=== PATIENT | female | born 1945 | race Caucasian/White ===

== ENCOUNTER 2017-09-30 13:02 | Emergency (ER) | payer OTHER ==
[~2017-09-30] VITALS: Ht 170.2 cm; Wt 85.0 kg
[~2017-09-30 13:02] MED LIST: CYM30 PO; LRT5 PO; SYN125 PO; TRAM-10 PO; TRAZ100T29 PO
[2017-09-30 13:06] VITALS: TEMP 36.8; Ht 170.2 cm; Wt 85.0 kg
[2017-09-30] MEDS ORDERED: MoRPHine SULFATE 10 MG/ML CARP/VIAL IM STA (13:44)
--- NOTE | 2017-09-30 14:27 | DIAGNOSTIC IMAGING REPORT ---
R SHOULDER MIN 2 VIEWS ROUTINE HISTORY: 71 years-old Female fall, rt shoulder pain acute post traumatic right shoulder pain COMPARISON: Chest radiograph 08/15/2008 TECHNIQUE: 3 views of the right shoulder FINDINGS: Bones are mildly demineralized. Mild glenohumeral and AC joint osteoarthritis. There is an acute comminuted fracture of the proximal right humerus involving the proximal metadiaphysis, and surgical neck with extension into the caudal aspect greater tuberosity. The lesser tuberosity and humeral head appear intact. Comminuted fracture fragments are displaced laterally up to 1.3 cm. Minimal apex medial angulation of a few degrees. Imaged lung adams appear clear. Mild soft tissue swelling about the shoulder. IMPRESSION: Acute comminuted mildly displaced fracture of the proximal humerus involving the proximal metadiaphysis, surgical neck and greater tuberosity. The above report was generated using voice recognition software. It may contain grammatical, syntax or spelling errors. Electronically signed by: Jesús Beasley M.D. 09/30/2017 2:25 PM Dictated Date/Time: 09/30/2017 2:23 PM
[2017-09-30] MEDS ORDERED: OXYC-594 PO (14:54)
--- NOTE | 2017-09-30 14:55 | EMERGENCY ROOM VISIT NOTE ---
History Report prepared by Jodi: Areli Nagy Under the Supervision of: Dr. Narayan Mcginnis D.O. 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 The patient was walking outside when she stepped on a slippery board and fell. She landed on her right shoulder. She currently rates her discomfort as a 10/10 in severity. She denies any other injury. She is not having any pain elsewhere. Source of History: patient Onset: DOCK MANAGER Position: shoulder (right) Symptom Intensity: 10/10 Quality: other (injury from fall) Timing: other (persistent) Review of Systems See HPI for pertinent positives & negatives. A total of 10 systems reviewed and were otherwise negative. Past Medical & Surgical Medical Problems: (1) Osteoarthritis (2) Osteoporosis Family History Heart disease Social History Smoking Status: Never Smoker Marital Status: Housing Status: lives with significant other Occupation Status: employed Current/Historical Medications Scheduled Duloxetine Hcl (Cymbalta *), 30 MG PO DAILY Hydrocodone/Acetaminophen 5MG/500MG (Vicodin 5MG/500MG), 1-2 TABLET PO Q4-6HR PRN Levothyroxine (Synthroid *), 0.125 MG PO DAILY Tramadol (Ultram), 100 MG PO TID PRN Trazodone Hcl (Trazodone), 100 MG PO HS Scheduled PRN Oxycodone/Acetaminophen 10MG/325MG (Percocet 10MG/325MG), 1 TAB PO Q4H PRN for Pain Allergies Coded Allergies: No Known Allergies (Unverified , ., 10/15/08) Physical Exam Vital Signs Date Time Temp Pulse Resp B/P (MAP) Pulse Ox O2 Delivery O2 Flow Rate FiO2 09/30/17 13:06 36.8 57 18 152/83 100 Room Air Physical Exam CONSTITUTIONAL/VITAL SIGNS: Reviewed / noted above. GENERAL: Non-toxic in appearance. INTEGUMENTARY: Warm, dry, and [place]. HEAD: Normocephalic. EYES: without scleral icterus or trauma. ENT/OROPHARYNX: clear and moist. LYMPHADENOPATHY/NECK: Is supple without lymphadenopathy or meningismus. RESPIRATORY: Lungs clear and equal. CARDIOVASCULAR: Regular rate and rhythm. GI/ABDOMEN: Soft and nontender. No organomegaly or pulsatile mass. No rebound or guarding. Normal bowel sounds. EXTREMITIES: Warm and well perfused. BACK: No CVA tenderness. NEUROLOGICAL: Intact without focal deficits. PSYCHIATRIC: normal affect. MUSCULOSKELETAL: Normally developed with good muscle tone. Pain with palpation of the right shoulder. Medical Decision & Procedures ER Provider Diagnostic Interpretation: X ray results and stated below per my interpretation and radiology interpretation. R SHOULDER MIN 2 VIEWS ROUTINE HISTORY: 71 years-old Female fall, rt shoulder pain acute post traumatic right shoulder pain COMPARISON: Chest radiograph 08/15/2008 TECHNIQUE: 3 views of the right shoulder FINDINGS: Bones are mildly demineralized. Mild glenohumeral and AC joint osteoarthritis. There is an acute comminuted fracture of the proximal right humerus involving the proximal metadiaphysis, and surgical neck with extension into the caudal aspect greater tuberosity. The lesser tuberosity and humeral head appear intact. Comminuted fracture fragments are displaced laterally up to 1.3 cm. Minimal apex medial angulation of a few degrees. Imaged lung adams appear clear. Mild soft tissue swelling about the shoulder. IMPRESSION: Acute comminuted mildly displaced fracture of the proximal humerus involving the proximal metadiaphysis, surgical neck and greater tuberosity. The above report was generated using voice recognition software. It may contain grammatical, syntax or spelling errors. Electronically signed by: Jesús Beasley M.D. 09/30/2017 2:25 PM Dictated Date/Time: 09/30/2017 2:23 PM Medications Administered Medications (Trade) Dose Ordered Sig/Marylou Route Start Time Stop Time Status Last Admin Dose Admin Morphine Sulfate (MoRPHine SULFATE INJ) 8 mg NOW STAT IM 09/30/17 13:44 09/30/17 13:45 DC 09/30/17 14:02 8 MG ED Course 1341: Previous medical records were reviewed. The patient was evaluated in room A9A. A complete history and physical examination was performed. 1344: Morphine Sulfate 8 mg IM. 1434: I reevaluated the patient. I updated her on the results. 1452: On reevaluation, the patient is resting comfortably. I discussed the results and findings with the patient. She verbalized agreement of the treatment plan. She was discharged home. Medical Decision Differential diagnosis: Etiologies such as fracture, dislocation, neurovascular compromise, compartment syndrome, soft tissue injury, as well as others were entertained. This is a 71-year-old female who presents to the ED after slipping on a piece of what would and falling onto her right shoulder. She complains of right shoulder pain. X-ray reveals a comminuted mildly displaced proximal humerus fracture. Exam is consistent with this. She denies other injuries and did not strike her head or lose consciousness. She denies any neck or back pain. Blood pressure was slightly elevated likely related to pain. She was given morphine IM here for pain. She was placed in a splint and sling and referred to orthopedics. She has seen Dr. Torrez in the past. She is neurovascularly intact distally. Medication Reconcilliation Current Medication List: was personally reviewed by me Blood Pressure Screening Patient's blood pressure: Elevated blood pressure Blood pressure disposition: Elevated BP felt to be situational Impression Primary Impression: Proximal humerus fracture Scribe Attestation The scribe's documentation has been prepared under my direction and personally reviewed by me in its entirety. I confirm that the note above accurately reflects all work, treatment, procedures, and medical decision making performed by me. Departure Information Dispostion Home / Self-Care Prescriptions Oxycodone/Acetaminophen 10MG/325MG (PERCOCET 10MG/325MG) Tab 1 TAB PO Q4H Y for Pain, #30 TAB Prov: Narayan Mcginnis D.O. 09/30/17 Patient Instructions My [facility] Additional Instructions Keep splint clean and dry. Follow-up with orthopedics tomorrow for recheck. Percocet as prescribed. No driving within 6 hours of use. Do not take additional Tylenol while taking Percocet.
[2017-09-30 15:02] VITALS: BP 125/64; PULSE 57; O2SAT 97
== END 2017-09-30 15:05 | disposition home or self-care (01) ==
LOC: C.EDB 13:04 → C.EDA 15:05
DX: S42.291A Other displaced fracture of upper end of right humerus, initial encounter for closed fracture (principal); M19.90 Unspecified osteoarthritis, unspecified site; M81.0 Age-related osteoporosis without current pathological fracture; Z79.899 Other long term (current) drug therapy; W01.0XXA Fall on same level from slipping, tripping and stumbling without subsequent striking against object, initial encounter

== ENCOUNTER 2017-10-07 06:49 | Observation (INO) | payer OTHER ==
[2017-10-05 14:09] VITALS: BMI 29.0
--- NOTE | 2017-10-06 10:30 | HISTORY & PHYSICAL EXAMINATION ---
DATE OF ADMISSION: 10/07/2017 CHIEF COMPLAINT: Right shoulder pain. HISTORY OF PRESENT ILLNESS: The patient is a 71-year-old female who suffered a fall at home over the weekend. She was seen in the ED and referred to our office for evaluation. X-rays revealed displaced proximal humerus fracture. She is now scheduled for ORIF of her right proximal humerus. PAST MEDICAL HISTORY: Hypercholesterolemia, hypothyroidism. PAST SURGICAL HISTORY: Unknown. MEDICATIONS: Omeprazole 20 mg daily, Tirosint 125 mcg daily, duloxetine 60 mg daily, trazodone 100 mg 2 times daily, atorvastatin 20 mg daily, calcium plus D daily, vitamin C daily, Centrum Silver women's daily, vitamin E 400 units daily, aspirin 81 mg daily. ALLERGIES: No known drug allergies. SOCIAL HISTORY AND REVIEW OF SYSTEMS: Noncontributory. PHYSICAL EXAMINATION: GENERAL: Well-nourished, well-developed elderly female who appears stated age. HEENT: Normocephalic, atraumatic. Extraocular movements intact. Oropharynx pink and moist. NECK: Supple without adenopathy. LUNGS: Clear to auscultation bilaterally. HEART: Regular rate and rhythm. ABDOMEN: Soft, nontender, nondistended. EXTREMITIES: The right upper extremity is in a sling. She has significant pain with any attempted motion about the shoulder. She has swelling and ecchymosis about the upper arm region. X-RAYS: X-rays were reviewed. It shows a comminuted, extraarticular, posteriorly displaced proximal humerus fracture. ASSESSMENT: Comminuted, extraarticular, posteriorly displaced right proximal humerus fracture. PLAN: Above discussed with the patient. Risks versus benefits were discussed, consent was obtained. We will proceed with right proximal humerus ORIF as indicated.
[~2017-10-07] VITALS: Ht 172.7 cm; Wt 85.4 kg
[2017-10-07] VITALS (9 sets, daily range): BP systolic 127–155; BP diastolic 20–70; PULSE 53–65; TEMP 36.7–37.7; O2SAT 95–100; Ht 172.7 cm; Wt 85.4 kg
[~2017-10-07 06:49] MED LIST changes: +ASCA500 PO; +BUPIVACAINE 0.25% 30 ML VIAL ONE; +CALC500C70 PO; +CLONIDINE HCL 100 MCG/ML SYRINGE ONE; -CYM30 PO; +EpINEphrine INJ 1MG/ML AMP 1 MG/ML AMP ONE; +LACTATED RINGER'S 1000ML 1,000 ML IV SCH; +LEVO112T4 PO; -LRT5 PO; +MULT-506 PO; +OXYC-594 PO; +PRLSR20 PO; +ROPIVACAINE 0.5% 5 MG/ML 30 ML VIAL ONE; +SERT25TA PO; -SYN125 PO; -TRAM-10 PO; +VITACAP37 PO
[2017-10-07] MEDS ORDERED: MIDAZOLAM HCL 1 MG/ML 2ML VIAL ONE (07:21)
[2017-10-07] MEDS ORDERED: FENTANYL CITRATE INJ 50 MCG/1 ML 2 ML VIAL ONE ×2 (07:22→09:26)
[2017-10-07] MEDS ORDERED: ROCURONIUM BROMIDE 10 MG/ML 5 ML VIAL ONE (07:26)
[2017-10-07] MEDS ORDERED: LIDOCAINE 2% 20 MG/ML 5ML SYR ONE (07:26)
[2017-10-07] MEDS ORDERED: ATOR10TA82 PO (07:30)
[2017-10-07] MEDS ORDERED: CEFAZOLIN SOD 2000MG/15 ML IV PUSH ONE (07:55)
[2017-10-07] MEDS ORDERED: NURSING VERBAL MED ORDER ONE (08:00)
--- NOTE | 2017-10-07 08:34 | History & Physical Bridge Note ---
H&P Re-Evaluation Bridge Note: I have examined the patient, reviewed the History & Physical and in the interval since the performance of the History & Physical I have noted the following changes of clinical significance: No changes noted
[2017-10-07] MEDS ORDERED: BUPIVACAINE/EPINEPHRINE 0.5% MPF 1:200,000 30 ML VIAL ONE (08:47)
[2017-10-07] MEDS ORDERED: DEXAMETHASONE SOD INJ 4 MG/ML VIAL ONE (08:49)
[2017-10-07] MEDS ORDERED: ONDANSETRON INJ 2 MG/ML 2 ML VIAL ONE (08:49)
[2017-10-07] MEDS ORDERED: NALOXONE HCL 0.4 MG/1 ML VIAL/CARP IV PRN (09:00)
[2017-10-07] MEDS ORDERED: PHENYLEPHRINE 100MCG/ML 5ML SYR IV PRN (09:00)
[2017-10-07] MEDS ORDERED: HYDROmorphone INJ 2 MG/ML SYR/VIAL IV PRN (09:00)
[2017-10-07] MEDS ORDERED: FLUMAZENIL 0.1 MG/1 ML 10 ML VIAL IV PRN (09:00)
[2017-10-07] MEDS ORDERED: MEPERIDINE HCL 25 MG/ML CARP IV PRN (09:00)
[2017-10-07] MEDS ORDERED: ONDANSETRON INJ 2 MG/ML 2 ML VIAL IV PRN ×2 (09:00→10:15)
[2017-10-07] MEDS ORDERED: EpHEDrine SULFATE INJ 50 MG/ML AMP IV PRN (09:00)
[2017-10-07] MEDS ORDERED: LABETALOL HCL IV 5 MG/ML 20ML IV PRN (09:00)
[2017-10-07] MEDS ORDERED: ATROPINE SULFATE 0.1 MG/ML 5ML SYR IV PRN (09:00)
[2017-10-07] MEDS ORDERED: PROPOFOL IV EMULSION 10 MG/ML 20 ML VIAL ONE ×2 (09:04→09:12)
[2017-10-07] MEDS ORDERED: NEOSTIGMINE METHYLSULFATE 5 MG/5 ML SYR ONE (09:31)
[2017-10-07] MEDS ORDERED: GLYCOPYRROLATE INJ 0.2 MG/ML VIAL ONE ×2 (09:31)
--- NOTE | 2017-10-07 09:55 | [facility] Post Operative Brief Note ---
Immediate Operative Summary Operative Date Oct 07, 2017. Pre-Operative Diagnosis Comminuted, extraarticular, posteriorly displaced right proximal humerus fracture. Post-Operative Diagnosis same as preoperative diagnosis Procedure(s) Performed ORIF Surgeon Dr. Manzano Support Merchandiser Surgeon(s) Tee Fuller PA-C Estimated Blood Loss 20cc Findings Consistent with Post-Op Diagnosis Specimens none per surgeon Drains None Anesthesia Type General Disposition Accompanied Pt To Recover: no Disposition: Recovery Room / PACU Overlapping Procedure I was present for: the critical portions of procedure. I was immediately available: during the entire case
[2017-10-07] MEDS ORDERED: LABETALOL HCL IV 5 MG/ML 20ML ONE (09:59)
[2017-10-07] MEDS ORDERED: FLUMAZENIL 0.1 MG/1 ML 10 ML VIAL IV ONE (10:01)
--- NOTE | 2017-10-07 10:08 | DIAGNOSTIC IMAGING REPORT ---
R SHOULDER MIN 2 VIEW ROUTINE CLINICAL HISTORY: 71 years-old Female presenting with RT PROXIMAL HUMERUS FX. TECHNIQUE: 2 fluoroscopic image(s) recorded as part of an intraoperative procedure. COMPARISON: 09/30/2017. FINDINGS/IMPRESSION: Buttress plate and screw fixation of the comminuted right humeral neck fracture. Near-anatomic alignment of fracture fragments. Please see surgical report for further details. Fluoroscopy dosage (mGy): 1.80. Fluoroscopy time: 26.2. Number or time of fluoroscopic spot images: 0. Electronically signed by: David Hawk M.D. 10/07/2017 10:07 AM Dictated Date/Time: 10/07/2017 10:06 AM
[2017-10-07] MEDS ORDERED: MAGNESIUM HYDROXIDE SUSP 30 ML UDC PO PRN (10:15)
[2017-10-07] MEDS ORDERED: CEFAZOLIN IV 2,000 MG in DEXTROSE 5% 50ML 50 ML IV SCH (10:15)
[2017-10-07] MEDS ORDERED: ALUMINUM/MAGNESIUM SUSP 30 ML UDC PO PRN (10:15)
[2017-10-07] MEDS ORDERED: BISACODYL 10 MG SUPP PR PRN (10:15)
--- NOTE | 2017-10-07 10:15 | OPERATIVE REPORT ---
DATE OF OPERATION: 10/07/2017 PREOPERATIVE DIAGNOSIS: Angulated proximal humerus fracture, right arm. POSTOPERATIVE DIAGNOSIS: Angulated proximal humerus fracture, right arm. PROCEDURE: Open reduction internal fixation displaced fracture, right arm. SURGEON: Dr. Torrez. BOTTLE ASSEMBLER: ALANIS Beltran. ANESTHESIA: General. COMPLICATIONS: None. Mr. Fuller was essential through all portions of the case including positioning, prepping, draping, medical or surgical instrument maker, wound closure, and dressing application. DESCRIPTION OF PROCEDURE: Following induction of adequate general anesthesia, the patient's right arm was prepped and draped in the usual sterile manner. Deltopectoral approach was utilized. Subcutaneous tissue was sharply dissected. Electrocautery was used for hemostasis. Prior to incision, 20 mL of Marcaine with epinephrine was injected. The cephalic vein was identified and taken laterally with the deltoid and a self-retaining retractor was placed beneath the conjoined tendon medially and the deltoid laterally. A subperiosteal elevator of a [place] type was utilized to expose the bone. Reduction was obtained using open reduction techniques. The plate was placed in the appropriate position and held provisionally using two K wires. The position of the plate was checked and found to be appropriate and a single screw was placed distally fixing the plate to the bone. Next, multiple locking screws were placed proximally and 2 additional locking screws were placed distally. All screws were hand tightened and final check x-rays revealed an adequate reduction of the bone with good screw lengths throughout. This construct was stable. The wound was irrigated. Subcutaneous tissues were closed using 0 Dexon and skin was closed with mary, sterile dressing of Adaptic, 4 x 4, ABD, foam tape, and a sling was applied. The patient tolerated the procedure well. I attest to the content of the Intraoperative Record and any orders documented therein. Any exception s are noted below.
[2017-10-07] MEDS: FENTANYL CITRATE INJ 50 MCG/1 ML 2 ML VIAL IV PRN ×4 (10:20→10:40)
[2017-10-07] MEDS ORDERED: HYDROmorphone INJ 0.5 MG/0.5 ML SYR ONE (10:27)
[2017-10-07] MEDS ORDERED: IV FLUIDS COMPLETED PRN (10:45)
--- NOTE | 2017-10-07 11:02 | Anesthesiology Progress Note ---
Anesthesia Post Op Note Date & Time Oct 07, 2017 at 11:02 Vital Signs Pain Intensity: 4 Vital Signs Past 12 Hours Date Time Temp Pulse Resp B/P (MAP) Pulse Ox O2 Delivery O2 Flow Rate FiO2 10/07/17 10:55 50 14 132/64 94 Nasal Cannula 4 10/07/17 10:45 52 13 150/70 95 Nasal Cannula 4 10/07/17 10:35 49 14 155/67 96 Nasal Cannula 4 10/07/17 10:25 52 16 157/69 96 Nasal Cannula 4 10/07/17 10:15 36.2 58 16 168/87 92 Nasal Cannula 4 10/07/17 07:31 36.7 65 20 141/20 (60) 100 Room Air Notes Mental Status: alert / awake / arousable, participated in evaluation Pt Amnestic to Procedure: Yes Nausea / Vomiting: adequately controlled Pain: adequately controlled Airway Patency, RR, SpO2: stable & adequate BP & HR: stable & adequate Hydration State: stable & adequate Anesthetic Complications: no major complications apparent
[2017-10-07] MEDS: D5W AND 1/2NSS + 20MEQ KCL 1,000 ML IV SCH ×2 (13:15→22:43)
[2017-10-07] MEDS: ACETAMINOPHEN 500 MG TAB PO SCH ×2 (13:15→20:45)
[2017-10-07] MEDS: OXYCODONE/ACETAMINOPHEN 5-325 TAB PO PRN ×2 (13:17→20:44)
[2017-10-07] MEDS: CEFAZOLIN IV 2,000 MG in SYRINGE 0 ML IV SCH (15:53)
[2017-10-07] MEDS: MoRPHine SULFATE 2 MG/ML CARP IV PRN (18:35)
[2017-10-07] MEDS: DOCUSATE SODIUM 100 MG CAP PO SCH (20:44)
[2017-10-07] MEDS ORDERED: TRAZODONE HCL 100 MG TAB PO SCH (21:00)
[2017-10-08] MEDS: CEFAZOLIN IV 2,000 MG in SYRINGE 0 ML IV SCH (00:05)
[2017-10-08] MEDS: OXYCODONE/ACETAMINOPHEN 5-325 TAB PO PRN ×2 (02:59→09:18)
[2017-10-08 03:10] VITALS: BP 126/62; PULSE 61; TEMP 37; O2SAT 96
[2017-10-08] MEDS: ACETAMINOPHEN 500 MG TAB PO SCH (05:31)
[2017-10-08] MEDS ORDERED: LEVOTHYROXINE 112 MCG TAB PO SCH (06:00)
[2017-10-08 06:47] LABS: HEMATOCRIT 33.4 % (37-47); HEMOGLOBIN 10.8 g/dL (12.0-16.0); MEAN CELL VOLUME 89.5 fL (80-100); MEAN CORPUSCULAR HGB CONC 32.3 g/dl (32-36); MEAN PLATELET VOLUME 10.4 fL (7.4-10.4); PLATELET COUNT 241 K/uL (130-400); RED CELL DISTRIBUTION WIDTH CV 13.3 % (11.5-14.5); RED CELL DISTRIBUTION WIDTH SD 43.6 fL (36.4-46.3); WHITE BLOOD COUNT 10.65 K/uL (4.8-10.8)
[2017-10-08] MEDS: MoRPHine SULFATE 2 MG/ML CARP IV PRN (07:07)
[2017-10-08 07:17] VITALS: BP 127/71; PULSE 61; TEMP 37; O2SAT 92
[2017-10-08 07:19] LABS: CALCIUM 8.2 mg/dl (8.5-10.1); CREATININE 0.67 mg/dl (0.60-1.20); POTASSIUM 3.9 mmol/L (3.5-5.1)
[2017-10-08 07:44] VITALS: BP 127/71; PULSE 61; TEMP 37; O2SAT 92
--- NOTE | 2017-10-08 07:49 | Orthopedic Progress Note ---
Orthopedic Progress Note Date of Service Oct 08, 2017. Subjective Post OP Day: 1 Reports: feeling well (Pt wants to go home) Objective N/V intact (Fingers mobile), dressing C/D/I Date Time Temp Pulse Resp B/P (MAP) Pulse Ox O2 Delivery O2 Flow Rate FiO2 10/08/17 07:17 37.0 61 17 127/71 (89) 92 Room Air 10/08/17 03:10 37.0 61 16 126/62 (83) 96 Room Air 10/08/17 00:05 Room Air 10/07/17 23:08 37.1 59 17 145/68 (93) 96 Room Air 10/07/17 19:16 37.7 62 18 155/66 (95) 95 Room Air 10/07/17 15:58 Room Air 10/07/17 15:06 36.9 54 18 137/64 (88) 95 Nasal Cannula 2.0 10/07/17 14:31 36.9 58 18 143/70 (94) 96 2.0 10/07/17 13:41 58 18 139/69 (92) 97 2.0 10/07/17 12:40 58 18 137/65 (89) 96 2.0 10/07/17 12:06 53 16 127/66 (86) 96 2.0 10/07/17 11:40 Nasal Cannula 2.0 10/07/17 11:40 Nasal Cannula 2.0 10/07/17 11:40 36.8 54 15 136/69 (91) 95 Nasal Cannula 2.0 10/07/17 11:25 51 14 127/77 96 Nasal Cannula 4 10/07/17 11:15 51 14 141/65 95 Nasal Cannula 4 10/07/17 11:05 36.5 51 14 136/68 96 Nasal Cannula 4 10/07/17 10:55 50 14 132/64 94 Nasal Cannula 4 10/07/17 10:45 52 13 150/70 95 Nasal Cannula 4 10/07/17 10:35 49 14 155/67 96 Nasal Cannula 4 10/07/17 10:25 52 16 157/69 96 Nasal Cannula 4 10/07/17 10:15 36.2 58 16 168/87 92 Nasal Cannula 4 Laboratory Results 24 Hours: Test 10/08/17 06:23 Hematocrit 33.4 % Hemoglobin 10.8 g/dL Assessment & Plan Assessment: 71 yo female stable POD #1 s/p ORIF right proximal humerus Plan: 1. Med management 2. D/C planning- home today
[2017-10-08] MEDS ORDERED: ACET-24 PO (07:53)
[2017-10-08] MEDS ORDERED: RXC5 PO (07:53)
--- NOTE | 2017-10-08 07:56 | Discharge Instructions ---
Discharge Instructions Date of Service Oct 08, 2017. Admission Reason for Admission: Right Shoulder Pain -Proximal Humerus Fracture Discharge Discharge Diagnosis / Problem: Right proximal humerus fracture Discharge Goals Goal(s): Decrease discomfort, Improve function Activity Recommendations Activity Limitations: as noted below . Instructions / Follow-Up Instructions / Follow-Up Maintain dressing until 10/09/17 then may remove and shower. Apply light dressing to wound as needed. Sling when active, may remove when sedentary. Maintain elbow at side, may move elbow, wrist, and hand. Frequent ice to shoulder. Follow-up with Dr Torrez ~ 10-14 days, call for appointment if necessary [phone]. Current Hospital Diet Patient's current hospital diet: Regular Diet Discharge Diet Recommended Diet: Regular Diet Procedures Procedures Performed: Right Shoulder Proximal Humerous Fracture Open Reduction Internal Fixation Pending Studies Studies pending at discharge: no Medical Emergencies . Who to Call and When: Medical Emergencies: If at any time you feel your situation is an emergency, please call 911 immediately. . Non-Emergent Contact Non-Emergency issues call your: Surgeon Call Non-Emergent contact if: temperature is above 101.5, your pain is not controlled, wound has increased drainage, wound has increased redness . "Provider Documentation" section prepared by Arnulfo Vicente PA-C. . [place] Drug Monitoring Program Search Results: patient reviewed within database, no issues identified
[2017-10-08] MEDS: DOCUSATE SODIUM 100 MG CAP PO SCH (08:18)
[2017-10-08] MEDS ORDERED: MULTIVITAMIN TAB PO SCH (09:00)
[2017-10-08] MEDS ORDERED: PANTOprazole SOD 40 MG TAB PO SCH (09:00)
[2017-10-08] MEDS ORDERED: CALCIUM 600MG + VIT D 400 IU TAB PO SCH (09:00)
[2017-10-08] MEDS ORDERED: ATORVASTATIN 10 MG TAB PO SCH (09:00)
[2017-10-08] MEDS ORDERED: SERTRALINE HCL 50 MG TAB PO SCH (09:00)
--- NOTE | 2017-10-08 09:59 | Anesthesiology Progress Note ---
Anesthesia Post Op Note Date & Time Oct 08, 2017 at 09:58 Vital Signs Pain Intensity: 10.0 Vital Signs Past 12 Hours Date Time Temp Pulse Resp B/P (MAP) Pulse Ox O2 Delivery O2 Flow Rate FiO2 10/08/17 07:44 37.0 61 17 92 Room Air 10/08/17 07:42 Room Air 10/08/17 07:17 37.0 61 17 127/71 (89) 92 Room Air 10/08/17 03:10 37.0 61 16 126/62 (83) 96 Room Air 10/08/17 00:05 Room Air 10/07/17 23:08 37.1 59 17 145/68 (93) 96 Room Air Notes Mental Status: alert / awake / arousable, participated in evaluation Pt Amnestic to Procedure: Yes Nausea / Vomiting: adequately controlled Pain: adequately controlled Airway Patency, RR, SpO2: stable & adequate BP & HR: stable & adequate Hydration State: stable & adequate Anesthetic Complications: no major complications apparent
--- NOTE | 2017-10-12 19:11 | DISCHARGE SUMMARY ---
DISCHARGE DIAGNOSIS: Angulated proximal humerus fracture, right arm. SECONDARY DIAGNOSES: Hypercholesterolemia, hypothyroidism. CONSULTATIONS: None. COMPLICATIONS: None. PROCEDURES: ORIF right proximal humerus fracture by Dr. Torrez on 10/07/2017. BRIEF HISTORY: As dictated in history and physical. HOSPITAL SUMMARY: The patient was admitted on the above date and had the above noted surgery performed which she tolerated well. On first postoperative day, patient was feeling well and was wanting to go home. Neurovascularly intact. Dressings clean, dry and intact. Vital signs were stable and she was afebrile. Hemoglobin was 10.8. She was remaining stable and it was felt she could be discharged to home on 10/08/17. For further review, please see chart. LAB AND X-RAY DATA: As per chart. DISCHARGE INSTRUCTIONS: The patient was discharged home on 10/08/17. DIET: Regular. ACTIVITY: Maintain dressing until 10/09/17, then remove and shower, apply light dressing to wound as needed. Sling when active, may remove when sedentary. Maintain elbow at side. May move elbow, wrist and hand. Frequent ice to shoulder. Follow up with Dr. Torrez in 10-14 days, call for appointment if necessary. DISCHARGE MEDICATIONS: Acetaminophen 1000 mg p.o. q. 8 hours for 14 days, oxycodone 5-10 mg p.o. q. 6 hours p.r.n., resume home meds as listed and stop taking Percocet.
== END 2017-10-08 11:25 | disposition home or self-care (01) ==
LOC: C.ACU 06:49 → C.3E 10:21 → ENRESERV 10:55
DX: S42.291A Other displaced fracture of upper end of right humerus, initial encounter for closed fracture (principal); E78.00 Pure hypercholesterolemia, unspecified; E03.9 Hypothyroidism, unspecified; W19.XXXA Unspecified fall, initial encounter; Y92.009 Unspecified place in unspecified non-institutional (private) residence as the place of occurrence of the external cause; F41.9 Anxiety disorder, unspecified; Z87.891 Personal history of nicotine dependence; Z79.899 Other long term (current) drug therapy